=== PATIENT | male | born 1965 | race Caucasian/White ===

== ENCOUNTER → 2017-04-09 07:43 | Outpatient (CLI) | payer SELFPAY | PROVIDERS: PCP Family Medicine; Visit Provider Family Medicine | DX: R07.9 Chest pain, unspecified (principal) | CPT/HCPCS: 93017 ==

== ENCOUNTER → 2022-05-15 14:58 | Outpatient (CLI) | payer SELFPAY ==
--- NOTE | 2022-05-15 15:08 | XR_ITS ---
FINAL REPORT CLINICAL HISTORY: fell off ladder, pain in left ankle FINDINGS: Left ANKLE SERIES 3 views of the ankle were obtained. There is soft tissue swelling about the ankle particularly laterally. There is an acute fracture of the dorsal navicular that is mildly displaced. Fracture appears to extend to the talonavicular joint. No other fractures are identified. IMPRESSION: Mildly displaced fracture of the dorsal navicular. Reviewed, Interpreted and Dictated by Joe Winston MD Transcribed by Bossman Bailey Authenticated and [facility]
== END ==
PROVIDERS: PCP Family Medicine; Visit Provider Nurse Practitioner Family
DX: M25.572 Pain in left ankle and joints of left foot (principal)
CPT/HCPCS: 73610

== ENCOUNTER → 2022-05-24 06:44 | Outpatient (CLI) | payer SELFPAY ==
--- NOTE | 2022-05-24 06:45 | CT_ITS ---
FINAL REPORT TECHNIQUE: Thin section axial CT images with coronal and sagittal reformats were performed. 3D reconstruction was performed. This study was performed with techniques to keep radiation doses as low as reasonably achievable (ALARA). Individualized dose reduction techniques using automated exposure control or adjustment of mA and/or kV according to the patient''s size were employed. CLINICAL HISTORY: Left foot pain, fracture FINDINGS: There is a comminuted fracture of the dorsal-lateral navicular. There is mild distraction of the fracture fragments. No other fracture is identified. A chronic appearing calcification is seen adjacent to the anterior process of the calcaneus. IMPRESSION: Comminuted fracture of the dorsal-lateral navicular with mild distraction of the fracture fragments. Reviewed, Interpreted and Dictated by Ru Dyson III, MD Transcribed by Rupal Centeno Authenticated and [facility]
== END ==
PROVIDERS: PCP Family Medicine; Visit Provider Orthopaedic Surgery
DX: M79.671 Pain in right foot (principal); S92.251A Displaced fracture of navicular [scaphoid] of right foot, initial encounter for closed fracture
CPT/HCPCS: 73700

== ENCOUNTER → 2022-06-08 10:37 | Outpatient (CLI) | payer SELFPAY ==
--- NOTE | 2022-06-08 10:40 | XR_ITS ---
FINAL REPORT CLINICAL HISTORY: fracture, follow-up FINDINGS: LEFT FOOT: Three views of the left foot were obtained. Again noted is a comminuted fracture of the dorsal aspect of the navicular. There is no significant callus formation at the fracture site. No other fracture is identified. IMPRESSION: Fracture of the dorsal aspect of the navicular without significant callus formation. Reviewed, Interpreted and Dictated by Ru Dyson III, MD Transcribed by Rupal Centeno Authenticated and . [facility]
== END ==
PROVIDERS: PCP Family Medicine; Visit Provider Orthopaedic Surgery
DX: S92.252A Displaced fracture of navicular [scaphoid] of left foot, initial encounter for closed fracture (principal)
CPT/HCPCS: 73630

== ENCOUNTER → 2022-07-06 10:37 | Outpatient (CLI) | payer SELFPAY ==
--- NOTE | 2022-07-06 10:40 | XR_ITS ---
FINAL REPORT CLINICAL HISTORY: lt ankle fx COMPARISON: 05/15/2022 FINDINGS: LEFT ANKLE: Three views of the left ankle were obtained. The comminuted fracture of the superior aspect of the navicular is again noted. The alignment is stable. No significant callus formation is noted. The joint spaces and mortise are intact. There is no soft tissue abnormality. IMPRESSION: Stable alignment of the comminuted fracture of the superior aspect of the navicular. Reviewed, Interpreted and Dictated by Ru Dyson III, MD Transcribed by Ivonne Magallon Authenticated and [facility]
== END ==
PROVIDERS: PCP Family Medicine; Visit Provider Orthopaedic Surgery
DX: M25.572 Pain in left ankle and joints of left foot (principal); S92.252A Displaced fracture of navicular [scaphoid] of left foot, initial encounter for closed fracture
CPT/HCPCS: 73610